=== PATIENT | female | born 1980 | race Caucasian/White ===

== ENCOUNTER → 2023-09-21 | Outpatient (REF) | payer OTHER, MEDICAID | LOC: M SFHCDERM 16:37 | PROVIDERS: ATTEND Nurse Practitioner Family | DX: L72.3 Sebaceous cyst (principal) ==

== ENCOUNTER → 2024-01-24 | Outpatient (REF) | payer OTHER, MEDICAID | LOC: M LAB REF 14:19 | PROVIDERS: ATTEND Surgery | DX: N60.02 Solitary cyst of left breast (principal) ==

== ENCOUNTER → 2024-03-12 | Outpatient (REF) | payer OTHER, MEDICAID | LOC: M SFHCDERM 17:19 | PROVIDERS: ATTEND Physician Assistant | DX: D23.72 Other benign neoplasm of skin of left lower limb, including hip (principal) ==